=== PATIENT | male | born 1955 | race Caucasian/White ===

== ENCOUNTER → 2022-10-19 | Outpatient (CLI) | payer OTHER | END | disposition home or self-care (01) | LOC: OIH 13:35 | PROVIDERS: ATTEND Internal Medicine Critical Care Medicine | DX: Z13.6 Encounter for screening for cardiovascular disorders (principal); R93.1 Abnormal findings on diagnostic imaging of heart and coronary circulation | CPT/HCPCS: 75571 ==

== ENCOUNTER → 2022-12-21 | Outpatient (CLI) | payer OTHER | END | disposition home or self-care (01) | LOC: SHCH 14:40 | PROVIDERS: ATTEND Internal Medicine Cardiovascular Disease | DX: I35.8 Other nonrheumatic aortic valve disorders (principal); I10 Essential (primary) hypertension; E78.5 Hyperlipidemia, unspecified; I65.23 Occlusion and stenosis of bilateral carotid arteries | CPT/HCPCS: 93306; 93880 ==

== ENCOUNTER → 2022-12-26 | Outpatient (CLI) | payer OTHER ==
[~2022-12-26] MED LIST: REGADENOSON 0.4 MG/5 ML PF SYG IVP ONE
== END | disposition home or self-care (01) ==
LOC: SHCH 08:52
PROVIDERS: ATTEND Internal Medicine Cardiovascular Disease
DX: R06.00 Dyspnea, unspecified (principal); I10 Essential (primary) hypertension; E78.5 Hyperlipidemia, unspecified; J44.9 Chronic obstructive pulmonary disease, unspecified; Z79.899 Other long term (current) drug therapy
CPT/HCPCS: 78452; 96374; 93017; J2785; A9500 ×2

== ENCOUNTER → 2023-01-30 | Outpatient (CLI) | payer OTHER ==
[~2023-01-30] MED LIST changes: +IOHEXOL 350 MG/ML 100ML INFUS..BTL IV ONE; +IOHEXOL-350 75 ML VIAL IV ONE; -REGADENOSON 0.4 MG/5 ML PF SYG IVP ONE
== END | disposition home or self-care (01) ==
LOC: RAH 10:50
PROVIDERS: ATTEND Internal Medicine Cardiovascular Disease
DX: I65.23 Occlusion and stenosis of bilateral carotid arteries (principal); M47.812 Spondylosis without myelopathy or radiculopathy, cervical region
CPT/HCPCS: 70498; Q9967 ×2

== ENCOUNTER → 2023-08-29 | Outpatient (CLI) | payer OTHER ==
[~2023-08-29] MED LIST changes: +AEC81 PO; +CLOP75TA32 PO; -IOHEXOL 350 MG/ML 100ML INFUS..BTL IV ONE; -IOHEXOL-350 75 ML VIAL IV ONE; +LOSA50TA64 PO; +ROSU40TA70 PO
== END | disposition home or self-care (01) ==
LOC: SHCH 07:37
PROVIDERS: ATTEND Internal Medicine Cardiovascular Disease
DX: I65.22 Occlusion and stenosis of left carotid artery (principal)
CPT/HCPCS: 93880

== ENCOUNTER → 2024-04-05 | Outpatient (CLI) | payer OTHER ==
[~2024-04-05] MED LIST changes: -ROSU40TA70 PO; +ROSU40TA88 PO
--- NOTE | 2024-04-09 11:27 | HMCSR ---
APPROVED REPORT Laterality: Bilateral Indications Claudication: , PAD Risk Factors Smoking VELOCITY AND DOPPLER WAVEFORM ANALYSIS FIRE WATCHMAN (R) 69.0cm/sec, Biphasic, FIRE WATCHMAN (L) 98.4cm/sec, Biphasic, Prof Fem Art. (R) 69.7cm/sec, Biphasic, Prof Fem Art. (L) 49.0cm/sec, Biphasic, Fem Art Prox. (R) 71.8cm/sec, Biphasic, Fem Art Prox. (L) 55.2cm/sec, Biphasic, Fem Art Mid. (R) 81.6cm/sec, Biphasic, Fem Art Mid. (L) 386.8cm/sec, Biphasic, Severe > 75% Fem Art Dist (R) 55.5cm/sec, Biphasic, Fem Art Dist. (L) 49.0cm/sec, Biphasic, Pop Art(AK) (R) 53.8cm/sec, Biphasic, Pop Art (AK) (L) 39.0cm/sec, Biphasic, Pop Art (Fossa)(R) 46.5cm/sec, Biphasic, Pop Art (Fossa) (L) 28.3cm/sec, Biphasic, Pop Art(BK) (R) 53.8cm/sec, Biphasic, Pop Art (BK) (L) 39.5cm/sec, Biphasic, LINUX [employer] ADMINISTRATOR Prox. (R) 79.1cm/sec, Biphasic, LINUX [employer] ADMINISTRATOR Prox. (L) 57.3cm/sec, Biphasic, LINUX [employer] ADMINISTRATOR Mid. (R) 79.1cm/sec, Biphasic, LINUX [employer] ADMINISTRATOR Mid. (L) 55.9cm/sec, Biphasic, LINUX [employer] ADMINISTRATOR Dist. (R) 52.2cm/sec, Biphasic, LINUX [employer] ADMINISTRATOR Dist. (L) 46.9cm/sec, Biphasic, Per Art Prox. (R) 51.4cm/sec, Biphasic, Per Art Prox. (L) 35.9cm/sec, Biphasic, Per Art Mid. (R) 43.2cm/sec, Biphasic, Per Art Mid. (L) 31.1cm/sec, Biphasic, Per Art Dist. (R) 50.6cm/sec, Biphasic, Per Art Dist. (L) 26.2cm/sec, Biphasic, STEFAN Prox. (R) 62.8cm/sec, Biphasic, STEFAN Prox. (L) 55.2cm/sec, Biphasic, STEFAN Mid. (R) 62.0cm/sec, Biphasic STEFAN Mid. (L) 40.7cm/sec, Biphasic, STEFAN Dist. (R) 59.5cm/sec, Biphasic, STEFAN Dist. (L) 46.2cm/sec, Biphasic, Technologist Impression Evidence of >70% stenosis in the Left mid SFA. Conclusion Evidence of >70% stenosis in the Left mid SFA. Conclusion Evidence of >70% stenosis in the Left mid SFA.
--- NOTE | 2024-04-09 11:27 | HMCSR ---
APPROVED REPORT Indications Rule Out AAA Risk Factors Smoking Duplex Results A/PTransverseLongitudinalVelocityWaveform Proximal Aorta 2.57cm3.11cm3.00cm62.70 cm/sec Mid Aorta 1.88cm1.84cm1.88cm61.50 cm/sec Distal Aorta 1.61cm1.71cm1.72cm78.10 cm/sec Rt. Common Iliac Artery0.92cm0.93cm0.98cm80.50 cm/sec Lt. Common Iliac Artery 0.92cm0.93cm1.26cf010.20 cm/sec Techologist Impression Proximal aorta measures 2.57cm x 3.11cm x 3.00cm Right and left common iliac arteries appear normal in dimensions with multiphasic waveforms. Conclusion Proximal aorta measures 2.57cm x 3.11cm x 3.00cm Right and left common iliac arteries appear normal in dimensions with multiphasic waveforms. Conclusion Proximal aorta measures 2.57cm x 3.11cm x 3.00cm Right and left common iliac arteries appear normal in dimensions with multiphasic waveforms.
== END | disposition home or self-care (01) ==
LOC: SHCH 08:58
PROVIDERS: ATTEND Internal Medicine Cardiovascular Disease
DX: I70.212 Atherosclerosis of native arteries of extremities with intermittent claudication, left leg (principal); I71.40 Abdominal aortic aneurysm, without rupture, unspecified; F17.200 Nicotine dependence, unspecified, uncomplicated
CPT/HCPCS: 93925; 93978